=== PATIENT | male | born 1985 | race Caucasian/White ===

== ENCOUNTER 2016-11-20 22:02 | Emergency (ER) | payer OTHER ==
[~2016-11-20] VITALS: Ht 160 cm; Wt 88.9 kg
[2016-11-20] MEDS ORDERED: PENICILLIN V P500 MG PO (23:03)
[2016-11-20] MEDS ORDERED: MOBIC15 MG PO (23:04)
[2016-11-20 23:37] VITALS: BP 134/78
== END 2016-11-20 23:38 | disposition home or self-care (01) ==
LOC: ER 22:02
DX: S02.5XXA Fracture of tooth (traumatic), initial encounter for closed fracture (principal); K02.9 Dental caries, unspecified; X58.XXXA Exposure to other specified factors, initial encounter; Y93.89 Activity, other specified; Y92.89 Other specified places as the place of occurrence of the external cause; Y99.8 Other external cause status